=== PATIENT | female | born 1960 | race Caucasian/White ===

== ENCOUNTER 2018-11-17 07:30 | Day surgery (SDC) | payer BC ==
[2018-11-17] VITALS (8 sets, daily range): BP systolic 112–120; BP diastolic 53–65; PULSE 50–70; TEMP 97.8–98.2
[~2018-11-17] VITALS: Ht 167.6 cm; Wt 73.6 kg
[2018-11-17] MEDS ORDERED: LEXAPRO 10MG10 MG PO (08:26)
[2018-11-17] MEDS ORDERED: TIROSINT100 MC1 PO (08:27)
--- NOTE | 2018-11-17 10:00 | NUR ---
Patient returns to room 6 per cart and is awake and alert. Temp 97.5 and sats 99% on 2L per nasal cannula. Patient states that she feels tired and allowed to sleep. IV fluids infusing and allowed to rest. Spouse in room. Call light in reach.
--- NOTE | 2018-11-17 10:15 | NUR ---
Resting with eyes closed. Spouse in room.
--- NOTE | 2018-11-17 10:30 | NUR ---
Continues to rest with eyes closed. Offers no complaints of pain or nausea.
[2018-11-17] MEDS ORDERED: TYLENOL 500MG500 MG PO (10:32)
--- NOTE | 2018-11-17 10:45 | NUR ---
Drinking sprite and water. More awake and denies pain or nausea.
--- NOTE | 2018-11-17 11:00 | NUR ---
Continues to deny pain or nausea.
--- NOTE | 2018-11-17 11:30 | NUR ---
Patient is eating muffin and drinking Sprite.
--- NOTE | 2018-11-17 12:25 | NUR ---
Patient assisted to the bathroom and is able to void and returns to the room. Denies pain and states that she had minimal blood noted with urination.
--- NOTE | 2018-11-17 12:53 | NUR ---
Patient given dismissal instructions and voices understanding of these. Instructed that she may take Tylenol or Motrin for pain if needed. Follow up appointment made and provided office number for questions and concerns.
== END 2018-11-17 13:00 | disposition home or self-care (01) ==
LOC: SDCO 07:30
DX: C67.2 Malignant neoplasm of lateral wall of bladder (principal); R31.29 Other microscopic hematuria; F32.9 Major depressive disorder, single episode, unspecified; E89.0 Postprocedural hypothyroidism; R42 Dizziness and giddiness; Z80.41 Family history of malignant neoplasm of ovary; Z88.2 Allergy status to sulfonamides; Z79.899 Other long term (current) drug therapy
CPT/HCPCS: C1769; J0690; J1100; J2250; J2405; J2704; J3010; J7120; Q9967